=== PATIENT | male | born 1980 | race Two or more races ===

== ENCOUNTER → 2017-02-12 | Outpatient (REF) | payer OTHER | LOC: M SMT 12:49 | PROVIDERS: ATTEND Nurse Practitioner Women's Health | DX: R39.15 Urgency of urination (principal) | CPT/HCPCS: 51798; 81001; 87086; G0463 ==

== ENCOUNTER → 2017-05-30 | Outpatient (CLI) | payer OTHER ==
[~2017-05-30] MED LIST: CONRAY-43 43% 50ML VIAL (Q9960) As Ordered ONE; PROHANCE 279.3MG/ML 15ML VIAL (A9576) As Ordered ONE
--- NOTE | 2017-05-30 10:05 | REP ---
MR ARTHROGRAM LEFT SHOULDER: TECHNIQUE: Axial T2 fat sat, coronal oblique T1, T2 fat sat, post arthrogram axial T1 fat sat, proton density, coronal oblique T1 fat sat, T2 sat, sagittal oblique T2 fat sat, ABER T1 fat sat. Ill-defined high signal is seen on T2-weighted images in the supraspinatus and infraspinatus tendons compatible with tendinopathy/tendinitis. There are similar findings in the teres minor tendon. No discrete rotator cuff tear is seen. There are minor hypertrophic degenerative changes of the acromioclavicular joint. Acromion is type 1. Biceps tendon is within the bicipital groove with no tenosynovitis. There is no Hill-Sachs deformity. Deltoid muscle demonstrates no abnormal signal. Biceps labral complex is intact. There is no SLAP tear or other labral tear. A few tiny subchondral cysts are seen in the superolateral humeral head. There is no bone marrow edema or occult fracture. There is no joint effusion. There is no paralabral cyst. There is mild to moderate chondromalacia centrally of the glenoid. IMPRESSION: Supraspinatus and infraspinatus tendinopathy/tendinitis. There are similar findings in the teres minor tendon. No rotator cuff tear or labral tear. 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 Signed by Shlomo Carl MD 05/30/2017 10:36 A
--- NOTE | 2017-05-30 15:22 | REP ---
Procedure: Left shoulder arthrogram The procedure was performed under the direct supervision of Dr. Carl. History: Left shoulder pain The benefits and risks including but not limited to pain, infection, bleeding and anaphylaxis were explained to the patient and informed consent was obtained. Technique: The left glenohumeral joint space was localized using fluoroscopic guidance. The skin was prepped and draped in a sterile fashion. 1% lidocaine was used as a local anesthetic. Using fluoroscopic guidance a 22 gauge spinal needle was inserted and advanced into the joint. 0.5 ml of Conray 43 was injected to verify placement. 11 ml of a solution containing 20 ml of sterile saline and 0.15 ml of ProHance was injected into the joint. The needle was removed and the patient was taken to MRI for postprocedural imaging. The patient tolerated the procedure well and there were no immediate complications. 2.7 seconds of fluoro time was utilized for this procedure. Reviewed by DOREEN Dave 05/30/2017 01:57 PSigned by Slhomo Carl MD 05/30/2017 03:14 P
== END ==
LOC: M RADPRO 06:48
PROVIDERS: ATTEND Physician Assistant
DX: M25.512 Pain in left shoulder (principal); M65.812 Other synovitis and tenosynovitis, left shoulder; M94.212 Chondromalacia, left shoulder
CPT/HCPCS: 23350; 73223; 77002; A9576; Q9960